=== PATIENT | female | born 1995 | race Caucasian/White ===

== ENCOUNTER 2016-12-25 20:52 | Emergency (ER) | payer OTHER ==
[2016-12-25 21:03] VITALS: BP 128/83
[2016-12-25] MEDS ORDERED: Sulfamethox/Trimethoprim DS 800/160* TAB PO ONE (21:24)
[2016-12-25] MEDS ORDERED: Phenazopyridine TAB* 100 MG PO ONE (21:25)
--- NOTE | 2016-12-25 21:40 | UC ---
Complaint Female HPI - HPI Summary HPI Summary: Patient presents to with CC of lower abdominal fullness, frequency and urgency of urination. She states for the past few days she has had the " stomach bug" with diarrhea and general malaise, but denies N/V. Today she noticed urgency and frequency with no burning. Denies back pain. Denies fever , chills but endorses some sweats. Denies hematuria. Afebrile on arrival. Denies other health problems. Requesting preg test. - History Of Current Complaint Chief Complaint: UCGU Stated Complaint: URINARY COMPLAINT Time Seen by Provider: 12/25/16 20:58 Hx Obtained From: Patient Hx Last Menstrual Period: NOV 27 2016 ?: No Onset/Duration: Sudden Onset Timing: Constant Severity Initially: Moderate Severity Currently: Moderate Pain Intensity: 5 Pain Scale Used: 0-10 Numeric Character: Burning, Cramping, Colicy Aggravating Factor(s): Movement, [place] Alleviating Factor(s): Nothing Associated Signs And Symptoms: Positive: Negative - Risk Factors Ectopic Risk Factor: Negative Ovarian Torsion Risk Factor: Reproductive Age - Allergies/Home Medications Allergies/Adverse Reactions: Allergies Allergy/AdvReac Type Severity Reaction Status Date / Time No Known Allergies Allergy Verified 12/25/16 20:57 Home Medications: Home Medications Ferrous Sulfate [Iron (Ferrous Sulfate)] 50 mg PO DAILY 12/25/16 [History Confirmed 12/25/16] PMH/Surg Hx/FS Hx/Imm Hx Previously Healthy: Yes Other History Of: Negative For: HIV, Hepatitis B, Hepatitis C, Anticoagulant Therapy - Surgical History Surgical History: None - Family History Known Family History: Positive: None Negative: Cardiac Disease, Hypertension Family History: no cardio vascular history in family - Social History Occupation: Employed Part-time Lives: With Family Alcohol Use: None Substance Use Type: None Smoking Status (MU): Never Smoked Tobacco Review of Systems Constitutional: Negative ENT: Negative Respiratory: Negative, Shortness Of Breath Gastrointestinal: Abdominal Pain, Diarrhea Genitourinary: Dysuria, Frequency, Urgency Motor: Negative Neurovascular: Negative Neurological: Negative All Other Systems Reviewed And Are Negative: Yes Physical Exam Triage Information Reviewed: Yes Appearance: Well-Appearing, No Pain Distress, Well-Nourished Vital Signs: Initial Vital Signs Temp 98.3 F 12/25/16 20:58 Pulse 67 12/25/16 20:58 Resp 16 12/25/16 20:58 BP 128/83 12/25/16 20:58 Pulse Ox 100 12/25/16 20:58 Vital Signs Reviewed: Yes Eye Exam: Normal Eyes: Positive: Conjunctiva Clear Neck exam: Normal Neck: Positive: No Lymphadenopathy Respiratory Exam: Normal Respiratory: Positive: Chest non-tender Cardiovascular Exam: Normal Cardiovascular: Positive: RRR, No Murmur Abdomen Description: Positive: Nontender, Soft Musculoskeletal Exam: Normal Musculoskeletal: Positive: Strength Intact Neurological Exam: Normal Psychological: Positive: Normal Response To Family, Age Appropriate Behavior Skin Exam: Normal Complaint Female Dx - Course Course Of Treatment: Patient presents with CC of urgency and frequency but denies burning with urination. Diarrhea X 2 days which has now improved. Preg test negative. UA shows 1+ leuks. based on sxs will treat for UTI. Bactrim x 3 days given with pyridium. Otherwise healthy. Follow up as needed. - Differential Dx/Diagnosis Differential Diagnosis/HQI/PQRI: Pelvic Inflammatory Disease, , Renal Colic, Sexually Transmitted Disease, Urinary Tract Infection Provider Diagnoses: UTI Discharge - Discharge Plan Condition: Stable Disposition: HOME Prescriptions: Phenazopyridine TAB* [Pyridium 100 mg TAB*] 100 mg PO TID #12 tab Sulfamethox/Trimethoprim DS* [Bactrim DS 800/160 TAB*] 1 tab PO BID #6 tab MDD 2 Patient Education Materials: Urinary Tract Infection in Women (ED) Referrals: Cristopher Lomax DO [Medical Doctor] - Additional Instructions: Dx. Urinary Tract Infection Drink plenty of fluids. Supplement with cranberry or starr juice. You may also take an over the counter cranberry supplement. If you have any questions about this, you may ask your pharmacist. If your symptoms have not improved in 1-2 days, if you develop fever, sweats or chills, please go to your emergency room, or call your PCP. Antibiotics were prescribed to you. Please take as directed. Supplement with over the counter probiotics on the opposite schedule of your antibiotic to prevent secondary infections. Do not take together as they may counteract each other. Pyridium: This medication is used to treat pain, burning, increased urination, and increased urge to urinate. These symptoms are usually caused by infection, injury, surgery, catheter, or other conditions that irritate the lower urinary tract. Pyridium will treat the symptoms of a urinary tract infection, but this medication does not treat the actual infection. Take the antibiotic that your doctor prescribes to treat your infection. Pyridium will most likely darken the color of your urine to an orange or red color. This is a normal effect and is not cause for alarm unless you have other symptoms such as pale or yellowed skin, fever, stomach pain, nausea, and vomiting. Darkened urine may also cause stains to your underwear, which may or may not be removed by laundering. It can also permanently stain soft contact lenses, and you should not wear them while taking this medicine.
== END 2016-12-25 21:38 | disposition home or self-care (01) ==
LOC: UCCORT 20:52
DX: N39.0 Urinary tract infection, site not specified (principal)
CPT/HCPCS: 81003; 84702; 87086; 99212; A9270-GY; G0463

== ENCOUNTER 2017-04-11 10:52 | Emergency (ER) | payer OTHER ==
[2017-04-11 12:00] VITALS: BP 111/61
== END 2017-04-11 13:00 | disposition left against medical advice (07) ==
LOC: UCCORT 10:52
DX: L98.9 Disorder of the skin and subcutaneous tissue, unspecified (principal); Z53.21 Procedure and treatment not carried out due to patient leaving prior to being seen by health care provider

== ENCOUNTER 2018-12-13 10:15 | Emergency (ER) | payer OTHER ==
--- NOTE | 2018-12-13 10:24 | UC ---
Throat Pain/Nasal Bart HPI - HPI Summary HPI Summary: Patient has had a sore throat for approximately 4 days and no other symptoms. - History of Current Complaint Stated Complaint: SORE THROAT, CONGESTION Time Seen by Provider: 12/13/18 10:23 Hx Obtained From: Patient Hx Last Menstrual Period: 04/10/17 ?: No Onset/Duration: Gradual Onset Severity: Mild Cough: None Associated Signs & Symptoms: Positive: Negative - Allergies/Home Medications Allergies/Adverse Reactions: Allergies Allergy/AdvReac Type Severity Reaction Status Date / Time No Known Allergies Allergy Verified 12/13/18 10:29 Home Medications: Home Medications Escitalopram Oxalate [Lexapro 10 mg] 10 mg PO DAILY 12/13/18 [History Confirmed 12/13/18] Fludrocortisone Acetate TAB* [Florinef TAB*] 0.1 mg PO DAILY 12/13/18 [History Confirmed 12/13/18] PMH/Surg Hx/FS Hx/Imm Hx Previously Healthy: Yes Cardiovascular History: Other - Patient has syncopal episodes and is on a heart monitor which gets removed in 2 days from now. She has no complaints that today. Other History Of: Negative For: HIV, Hepatitis B, Hepatitis C, Anticoagulant Therapy - Surgical History Surgical History: None - Family History Known Family History: Positive: None Negative: Cardiac Disease, Hypertension Family History: no cardio vascular history in family - Social History Alcohol Use: Occasionally Substance Use Type: None Smoking Status (MU): Never Smoked Tobacco - Immunization History Most Recent Influenza Vaccination: NONE 2016 Review of Systems All Other Systems Reviewed And Are Negative: Yes ENT: Positive: Sore Throat - Mild sore throat since Saturday. No other symptoms. Is Patient Immunocompromised?: No Physical Exam Triage Information Reviewed: Yes Appearance: Well-Appearing, No Pain Distress, Well-Nourished Vital Signs Reviewed: Yes Eyes: Positive: Conjunctiva Clear ENT: Positive: Hearing grossly normal, Pharyngeal erythema - Minimal tonsillar erythema, no exudate no tonsillar enlargement., TMs normal, Uvula midline. Negative: Tonsillar swelling, Tonsillar exudate, Trismus, Muffled voice, Hoarse voice Neck: Positive: Supple, Nontender, No Lymphadenopathy Respiratory: Positive: Lungs clear, Normal breath sounds, No respiratory distress, No accessory muscle use Cardiovascular: Positive: RRR, No Murmur, Pulses Normal, Brisk Capillary Refill Musculoskeletal Exam: Normal Neurological Exam: Normal Psychological Exam: Normal Skin Exam: Normal Throat Pain/Nasal Course/Dx - Course Course Of Treatment: Patient is comfortable here. Rapid strep test was negative. She can increase fluids and use throat lozenges or warm salt water gargles to follow-up with her primary care provider in 3-4 days if no improvement. - Differential Dx/Diagnosis Provider Diagnosis: Pharyngitis Discharge - Sign-Out/Discharge Documenting (check all that apply): Patient Departure All imaging exams completed and their final reports reviewed: No Studies - Discharge Plan Condition: Fair Disposition: HOME Patient Education Materials: Pharyngitis (ED) Referrals: Stefano Mac DO [Primary Care Provider] - Additional Instructions: Warm saltwater gargles, throat lozenges, Motrin for pain or fever. Follow-up with your primary care provider in 3 or 4 days if no improvement. - Billing Disposition and Condition Condition: FAIR Disposition: Home - Attestation Statements Provider Attestation: Per institutional requirements, I have reviewed the chart, however, I was not consulted specifically or made aware of this patient by the midlevel provider. I did not personally evaluate, interact with , or disposition this patient.
[2018-12-13 10:28] VITALS: BP 106/64
== END 2018-12-13 10:43 | disposition home or self-care (01) ==
LOC: UCCORT 10:15
DX: J02.9 Acute pharyngitis, unspecified (principal)
CPT/HCPCS: 87651; 99211; G0463

== ENCOUNTER 2019-01-23 08:23 | Emergency (ER) | payer OTHER ==
[2019-01-23 08:36] VITALS: BP 101/69
--- NOTE | 2019-01-23 09:06 | UC ---
Throat Pain/Nasal Bart HPI - HPI Summary HPI Summary: 23-year-old woman comes in with a chief complaint of several days of sore throat and rhinorrhea. Several people she knows have a diagnosis of strep pharyngitis. The rhinorrhea is green. Sore throat hurts worse when she swallows. She has not tried any [id number] medications. No chest congestion or shortness of breath. - History of Current Complaint Chief Complaint: UCGeneralIllness Stated Complaint: SORE THROAT,CONGESTION Time Seen by Provider: 01/23/19 09:00 Hx Last Menstrual Period: 04/10/17 Pain Intensity: 5 - Allergies/Home Medications Allergies/Adverse Reactions: Allergies Allergy/AdvReac Type Severity Reaction Status Date / Time No Known Allergies Allergy Verified 01/23/19 08:36 PMH/Surg Hx/FS Hx/Imm Hx Previously Healthy: Yes Other History Of: Negative For: HIV, Hepatitis B, Hepatitis C, Anticoagulant Therapy - Surgical History Surgical History: None - Family History Known Family History: Positive: None Negative: Cardiac Disease, Hypertension Family History: no cardio vascular history in family - Social History Alcohol Use: Occasionally Substance Use Type: None Smoking Status (MU): Never Smoked Tobacco - Immunization History Most Recent Influenza Vaccination: NONE 2016 Review of Systems All Other Systems Reviewed And Are Negative: Yes Constitutional: Positive: Negative Skin: Positive: Negative Eyes: Positive: Negative ENT: Positive: Sore Throat, Nasal Discharge, Sinus Congestion Respiratory: Positive: Negative Cardiovascular: Positive: Negative Gastrointestinal: Positive: Negative Motor: Positive: Negative Neurovascular: Positive: Negative Musculoskeletal: Positive: Negative Neurological: Positive: Negative Psychological: Positive: Negative Is Patient Immunocompromised?: No Physical Exam Triage Information Reviewed: Yes Appearance: No Pain Distress, Well-Nourished, Ill-Appearing - MILD Vital Signs: Initial Vital Signs Temp 99.1 F 01/23/19 08:31 Pulse 62 01/23/19 08:31 Resp 18 01/23/19 08:31 BP 101/69 01/23/19 08:31 Pulse Ox 98 01/23/19 08:31 Vital Signs Reviewed: Yes Eye Exam: Normal Eyes: Positive: Conjunctiva Clear ENT: Positive: Pharyngeal erythema, Nasal congestion, Nasal drainage, TMs normal Neck: Positive: Supple Respiratory: Positive: Lungs clear, Normal breath sounds, No respiratory distress Cardiovascular: Positive: RRR Musculoskeletal Exam: Normal Musculoskeletal: Positive: Strength Intact, ROM Intact Neurological Exam: Normal Neurological: Positive: Alert, Muscle Tone Normal Psychological Exam: Normal Psychological: Positive: Age Appropriate Behavior Skin Exam: Normal Throat Pain/Nasal Course/Dx - Course Course Of Treatment: DISCUSSED VIRAL VERSES BACTERIAL INFECTION AND THE ROLE OF ANTIBIOTICS. THE PATIENT PREFERS TO BE ON ANTIBIOTICS AT THIS TIME. - Differential Dx/Diagnosis Provider Diagnosis: Pharyngitis, Upper respiratory infection Discharge - Sign-Out/Discharge Documenting (check all that apply): Patient Departure All imaging exams completed and their final reports reviewed: No Studies - Discharge Plan Condition: Stable Disposition: HOME Prescriptions: Amoxicillin PO (*) [Amoxicillin 875 MG (*)] 875 mg PO BID #20 tab Patient Education Materials: Pharyngitis (ED), Upper Respiratory Infection (ED) Referrals: Stefano Mac DO [Primary Care Provider] - Additional Instructions: FOLLOW UP WITH YOUR DOCTOR IF NOT COMPLETELY IMPROVED. GET REEVALUATED SOONER IF WORSE OR ANY QUESTIONS OR CONCERNS. - Billing Disposition and Condition Condition: STABLE Disposition: Home
== END 2019-01-23 09:12 | disposition home or self-care (01) ==
LOC: UCCORT 08:23
DX: J02.9 Acute pharyngitis, unspecified (principal); J06.9 Acute upper respiratory infection, unspecified; Z20.828 Contact with and (suspected) exposure to other viral communicable diseases
CPT/HCPCS: 99212; G0463